=== PATIENT | female | born 1995 | race Caucasian/White ===

== ENCOUNTER → 2017-12-01 11:16 | Outpatient (CLI) | payer MEDICAID, SELFPAY ==
[2017-12-01 12:29] LABS: Urine Pregnancy, HCG Qual. Negative (Negative)
[2017-12-01 12:35] LABS: Basophils % 0.4 % (0.1-2.0); Eosinophils # 0.3 K/mm3 (0.0-0.4); Eosinophils % 4.9 % (0.1-12.0); Hematocrit 43.8 % (37.0-47.0); Lymphocytes # 2.8 K/mm3 (0.7-4.5); Lymphocytes % 44.2 K/mm3 (10-50); Mean Corpuscular HGB Conc 31.9 g/dL (31.8-35.4); Mean Corpuscular Volume 93.8 fl (81-99); Mean Platelet Volume 9.2 fl (7.4-10.4); Monocytes # 0.3 K/mm3 (0.1-1.0); Neutrophils # 2.9 K/mm3 (1.8-7.8); Neutrophils % 45.5 % (37.0-80.0); Platelet Count 282 K/mm3 (142-424); Red Blood Count 4.67 M/mm3 (4.20-5.40); Red Cell Distribution Width 12.2 % (11.5-17.5); White Blood Count 6.3 K/mm3 (4.8-10.8)
[2017-12-01 12:36] LABS: Amphetamine/Metha Screen,Urine Negative ng/mL (<1000); Barbiturates Screen,Urine Negative ng/mL (<200); Benzodiazepines Screen,Urine Negative ng/mL (200); Cannabinoid Screen,Urine Negative ng/mL (<50); Cocaine Screen,Urine Negative ng/g (<300); Methadone Screen,Urine Negative ng/mL (<300); Opiate Screen,Urine Negative ng/mL (<300); Phencyclidine Screen,Urine Negative ng/mL (<25)
[2017-12-01 13:20] LABS: Alanine Aminotransferase 16 U/L (12-78); Albumin Level 4.1 gm/dL (3.4-5.0); Albumin/Globulin Ratio 1.1 (1.1-1.8); Alkaline Phosphatase 60 U/L (46-116); Anion Gap 14.3 mEq/L (5-15); Aspartate Amino Transferase 15 U/L (15-37); Bilirubin,Total 0.5 mg/dL (0.2-1.0); Blood Urea Nitrogen 11 mg/dL (7-18); Carbon Dioxide 26 mmol/L (21.0-32.0); Chloride 108 mmol/L (98-107); Creatinine,Serum 0.62 mg/dL (0.55-1.02); Estimated Glomerular Filt Rate 120 ml/min (>60); GFR (African American) 146 ML/MIN (>60); Globulin 3.6 gm/dl (1.3-3.2); Glucose 78 mg/dL (74-106); Potassium 4.3 mmoL/L (3.5-5.1); Sodium 144 mmol/L (136-145); Thyroid Stimulating Hormone 1.67 uIU/ml (0.358-3.740); Total Protein,Serum 7.7 gm/dL (6.4-8.2)
== END ==
PROVIDERS: Visit Provider Nurse Practitioner Psychiatric/Mental Health
DX: F39 Unspecified mood [affective] disorder (principal)
CPT/HCPCS: 36415; 80053; 80305; 81025; 84443; 85025

== ENCOUNTER → 2018-01-15 10:41 | Outpatient (CLI) | payer MEDICAID, SELFPAY ==
--- NOTE | 2018-01-15 10:43 | US_ITS ---
US transvaginal Ordering Physician: Conor Farley MD Patient Age: 22 years: Female HISTORY: ITS.REASON: pelvic pain. HISTORY of cyst .nexplanon. With Breakthrough bleeding . TECHNIQUE: Transvaginal pelvic ultrasound COMPARISON :Prior transvaginal pelvic ultrasound from December 2012 ----FINDINGS -------- UTERUS. Normal size Retroverted retroflexed uterus. ... 7.8 cm length x 4.3 cm X 5.25 cm. . Moderate Endometrial stripe becomes more evident towards fundus = 7 mm AP maximum.. Individual stripe very thin at lower uterine segment.. Note LMP 01/08/2018 RIGHT OVARY: Nearly 4.5centimeter length x 2.7 cm x 2.62 cm. There are 2 cysts at the right ovary. The larger one is seen inferiorly measuring nearly 2.1 x 1.75 cm. The other partially collapsed cyst with some irregular contour superior to this measuring 1.75 x 1.1 cm . Only minimal trace fluid at cul-de-sac associated. The small pocket of fluid measuring 1.7 cm x 1 cm noted reflecting such LEFT OVARY: 2.5 x 1.55 x 1.25 cm. The cyst at the left ovary measuring 1.5 cm maximum length on my measurement x 0.9 cm. Moderate wall thickness. Other smaller follicles of both ovaries. IMPRESSION: --------- . Right ovary is enlarged & contains 2 cysts. The largest 2.1 cm & the another likely partially collapsed cyst measuring 1.75 cm. Only trace fluid at cul-de-sac associated Left ovary normal size with small cyst. 1.5 cm. Uterus normal size and is retroflexed/retroverted . Moderate endometrial stripe
== END ==
PROVIDERS: Family Provider Family Medicine; PCP Family Medicine; Visit Provider Obstetrics & Gynecology
DX: R10.2 Pelvic and perineal pain (principal)
CPT/HCPCS: 76830

== ENCOUNTER → 2018-02-08 15:00 | Outpatient (CLI) | payer MEDICAID, SELFPAY ==
[2018-02-08 15:03] LABS: Microscopic, Urine URINE MICROSCOPIC (MICROSCOPIC)
[2018-02-08 15:18] LABS: Basophils % 0.2 % (0.1-2.0); Eosinophils # 0.4 K/mm3 (0.0-0.4); Eosinophils % 4.5 % (0.1-12.0); Hematocrit 43.9 % (37.0-47.0); Hemoglobin 13.8 g/dL (12.2-16.2); Lymphocytes # 3.2 K/mm3 (0.7-4.5); Lymphocytes % 40.6 K/mm3 (10-50); Mean Corpuscular HGB Conc 31.3 g/dL (31.8-35.4); Mean Corpuscular Hemoglobin 28.6 pg (27.0-31.2); Mean Corpuscular Volume 91.3 fl (81-99); Mean Platelet Volume 9.1 fl (7.4-10.4); Monocytes # 0.4 K/mm3 (0.1-1.0); Neutrophils # 3.9 K/mm3 (1.8-7.8); Neutrophils % 49.7 % (37.0-80.0); Platelet Count 286 K/mm3 (142-424); Red Blood Count 4.81 M/mm3 (4.20-5.40); Red Cell Distribution Width 12.5 % (11.5-17.5); White Blood Count 7.8 K/mm3 (4.8-10.8)
[2018-02-08 15:22] LABS: Appearance,Urine CLEAR (Clear); Bilirubin,Urine Negative (Negative); Blood, Urine 2+ (Negative); Color,Urine YELLOW (Yellow); Glucose,Urine (UA) Negative (Negative); Ketones,Urine Negative (Negative); Leukocyte Esterase,Urine Negative (Negative); Nitrate,Urine Negative (Negative); PH,Urine 5.5 (5.0-8.5); Protein,Urine Negative (Negative); Specific Gravity, Urine >= 1.030 (1.005-1.030); Urobilinogen,Urine 0.2 EU/dl (0.2)
[2018-02-08 15:38] LABS: Bacteria,Urine 1+ /lpf
[2018-02-08 16:12] LABS: HCG Qualitative, Serum Negative (Negative)
[2018-02-08 16:22] LABS: Alanine Aminotransferase 19 U/L (12-78); Albumin Level 3.9 gm/dL (3.4-5.0); Albumin/Globulin Ratio 1.1 (1.1-1.8); Alkaline Phosphatase 66 U/L (46-116); Anion Gap 14.1 mEq/L (5-15); Aspartate Amino Transferase 13 U/L (15-37); Bilirubin,Total 0.4 mg/dL (0.2-1.0); Blood Urea Nitrogen 11 mg/dL (7-18); Calcium 9.1 mg/dL (8.5-10.1); Carbon Dioxide 26 mmol/L (21.0-32.0); Chloride 107 mmol/L (98-107); Creatinine,Serum 0.59 mg/dL (0.55-1.02); Estimated Glomerular Filt Rate 127 ml/min (>60); GFR (African American) 154 ML/MIN (>60); Globulin 3.6 gm/dl (1.3-3.2); Glucose 110 mg/dL (74-106); Potassium 4.1 mmoL/L (3.5-5.1); Sodium 143 mmol/L (136-145); Total Protein,Serum 7.5 gm/dL (6.4-8.2)
== END ==
PROVIDERS: Visit Provider Obstetrics & Gynecology
DX: Z01.818 Encounter for other preprocedural examination (principal); N94.9 Unspecified condition associated with female genital organs and menstrual cycle
CPT/HCPCS: 36415; 80053; 81001; 84703; 85025

== ENCOUNTER → 2020-01-20 07:22 | Outpatient (CLI) | payer MEDICAID, SELFPAY ==
[2020-01-20 09:20] LABS: Coronavirus 19 IgG Antibody Negative (Negative); Coronavirus 19 IgM Antibody Negative (Negative)
== END ==
PROVIDERS: Visit Provider Nurse Practitioner Obstetrics & Gynecology
DX: Z01.818 Encounter for other preprocedural examination (principal)
CPT/HCPCS: 36415; 86328

== ENCOUNTER 2020-01-23 06:07 | Day surgery (SDC) | payer MEDICAID, SELFPAY ==
--- NOTE | 2020-01-19 08:59 | SUR.PREOP ---
01/19/2020 @ 0900--PHONE CALL MADE TO PATIENT. PATIENT UNDERSTANDS THAT LAB WORK AND COVID TESTING NEEDS TO BE COMPLETED @ 0800 ON 01/20/2020. PATIENT UNDERSTANDS IF LAB WORK AND COVID-19 TESTS ARE NOT COMPLETED BY 12PM ON THAT DATE, THE SURGERY SCHEDULED WILL BE CANCELLED AND RESCHEDULED FOR ANOTHER TIME.
[2020-01-20 09:40] VITALS: BMI 29.9
[2020-01-23] VITALS (10 sets, daily range): BP systolic 97–116; BP diastolic 61–77; PULSE 57–78; RESP 16–20; TEMP 36.4–43; O2SAT 95–100
[2020-01-23 06:43] LABS: Basophils # 0.1 K/mm3 (0-0.2); Basophils % 1.3 % (0.1-2.0); Eosinophils # 0.4 K/mm3 (0.0-0.4); Eosinophils % 4.3 % (0.1-12.0); Hematocrit 43.8 % (37.0-47.0); Hemoglobin 14.7 g/dL (12.2-16.2); Lymphocytes # 4.5 K/mm3 (0.7-4.5); Lymphocytes % 43.8 % (10-50); Mean Corpuscular HGB Conc 33.6 g/dL (31.8-35.4); Mean Corpuscular Hemoglobin 30.5 pg (27.0-31.2); Mean Corpuscular Volume 90.9 fl (81-99); Mean Platelet Volume 8.8 fl (7.4-10.4); Monocytes # 0.5 K/mm3 (0.1-1.0); Monocytes % 4.3 % (1.7-9.3); Neutrophils # 4.8 K/mm3 (1.8-7.8); Neutrophils % 46.4 % (37.0-80.0); Platelet Count 301 K/mm3 (142-424); Red Blood Count 4.82 M/mm3 (4.20-5.40); Red Cell Distribution Width 12.8 % (11.5-17.5); White Blood Count 10.4 K/mm3 (4.8-10.8)
[2020-01-23 07:04] LABS: Chloride 106 mmol/L (98-107); Sodium 136 mmol/L (136-145)
[2020-01-23 07:05] LABS: Potassium 4.2 mmoL/L (3.5-5.1)
[2020-01-23 07:08] LABS: Anion Gap 9.2 mEq/L (5-15); Blood Urea Nitrogen 10 mg/dl (7-17); Calcium 8.8 mg/dl (8.4-10.2); Carbon Dioxide 25 mmol/L (22.0-30.0); Creatinine Clearance Estimated 140 mL/min (50-200); Estimated Glomerular Filt Rate 88 ml/min (>60); GFR (African American) 107 ML/MIN (>60); Glucose 98 mg/dl (74-100)
[2020-01-23 07:16] LABS: Urine Pregnancy, HCG Qual. Negative (Negative)
--- NOTE | 2020-01-23 07:51 | P.PN_ITS ---
[facility] Anesthesia Checklist - Patient Identification Patient Identification: Arm Band - Structural Data Admitted From: Home Planned Operative Procedure/s: laparoscopic bilateral salpingectomy Consent for Planned Operative Procedure(s) Verified: Yes Verified Documents: Surgical Consent, History and Physical - NPO Status Verified Time NPO: 00:00 - Additional verifications Anesthesia Reactions: Yes (HYPOTENSION) Hx Blood Transfusions: No Blood Transfusion Reaction: No - Airway Assessment C-Spine Mobility Assessed: Yes (mp2) TMJ Mobility Assessed: Yes Dentition: Good Dentition - Neurological Assessment Level of Consciousness: Awake, Alert - Anesthesia Plan Anesthesia Risk discussed: Yes Anesthesia Plan: Verified ASA Class: II Anesthesia Type: General [facility] History I have reviewed the patient's past medical history: Yes Medical History: Denies:: Cancer, Diabetes Mellitus Type 1, Diabetes Mellitus Type 2, Internal Pacemaker, MRSA, Seizures *Have you ever received a pneumonia vaccine?: No *Have you received a flu vaccine this season?: Yes Other Medical History: Denies: Blood Transfusion Reaction Anesthesia experience/problems:: nac Laterality Cases: Bilateral: Tonsillectomy Other Surgeries: Yes: Other. No: Pacemaker Amputation: No Fractures: No - *Social History Educational Level: Completed High School Smoking Status: Former smoker Tobacco Type: cigarettes # Packs/Day (cigarettes): 1 Alcohol Intake: never Alcohol Intake Frequency:: other Substance Use Type: denies use *Occupational Status:: unemployed Housing: house Household Members: spouse *Travel in the last 8 weeks: None Family Hx:: Cancer, Coronary Artery Disease, Diabetes, Heart Attack, Hyperlipidemia, Hypertension, Stroke, Mental illness
--- NOTE | 2020-01-23 08:04 | HMH.OPNOTE ---
Date of procedure: 01/23/20 Pre-op Diagnosis:: Desire for sterilization Post-op Diagnosis:: Desire for sterilization Procedure performed:: Laparoscopic bilateral salpingectomy Surgeon:: Mark Kennedy MD [employer] REPRESENTATIVE:: Abrahan Campos Anesthesia: GETA Estimated blood loss (mL): 25 Clinical Note:: She is a 24-year-old 2 para 2 who expressed desire for sterilization. The risks and benefits as well as the irreversibility of bilateral salpingectomy were discussed with the patient prior to surgery. Operative findings:: She had a normal-appearing anteverted uterus. The tubes appeared normal. The ovaries appeared normal. The upper abdomen and rest of the pelvis appeared normal. Operative note:: She was taken to the operating room where general anesthesia was found be adequate. She was prepped and draped in normal sterile fashion in the semilithotomy position. A weighted speculum was placed in the vagina and the anterior lip of the cervix was grasped with a tenaculum. I then inserted a Amanda uterine manipulator into the cervical os. The balloon was then insufflated. I changed gloves and injected 10 cc of 0.5% ropivacaine around her umbilicus and made a small incision within the umbilicus. I inserted a Veress needle into the abdominal cavity. The peritoneal cavity was then insufflated with carbon dioxide gas to a pressure of 20 mmHg. I then inserted a 5 millimeter trocar under direct vision. I injected through and through the pubic hairline, made a small incision here and inserted an 8 mm trocar under direct vision. I identified the inferior epigastric artery on the left side, went lateral to these and injected through and through. I then placed a 5 mm trocar here under direct vision. The pelvis and upper abdomen were then inspected and the findings were as previously dictated. I grasped the right tube at the cornua and using harmonic scalpel on coagulation mode I cut through the tube. I then grasped the distal tube and using harmonic scalpel cut along the mesosalpinx. The tube was removed through 8 mm trocar site. This was similarly performed on the patient's left side. I then injected 30 cc of 0.5% ropivacaine into the pelvis. After assuring hemostasis the gas was let out of the abdomen and hemostasis was once again assured. The abdomen was then reinsufflated. The secondary trochars were removed under direct vision. The gas was let out her abdomen. The primary trocar was then removed. The 8 mm trocar site was closed deeply with 2-0 Vicryl suture followed by subcuticular 4-0 Monocryl suture. The 5 mm trocar sites were closed with subcuticular 4-0 Monocryl. Sterile dressings were applied. The patient tolerated the procedure well and was taken to the recovery room in excellent condition. All sponge instrument and needle counts were correct. The estimated blood loss was less than 25 cc. Condition: stable Disposition: PACU Specimens:: Bilateral fallopian tubes Complications:: None
--- NOTE | 2020-01-23 08:11 | P.PN_ITS ---
[facility] Anesthesia Record Part I Intake, IV Amount: 810 Estimated blood loss (mL): 25 Urine output (mL): 25 Blood Pressure: 113/77 SaO2: 95 Pulse Rate: 57 Respiratory Rate: 16 Temperature: 98 F Patient is:: Drowsy, Stable Stable to PACU at:: 08:10
--- NOTE | 2020-01-23 09:21 | PC.NURSE ---
0828-pt sitting up in bed eating ice chips and drinking water without difficulty 0836-detailed report called to STACI Still 0840-pt transported to post op via stretcher with timo rails up and left in care of STACI Still with bed locked in lowest position, vss, pt stable
--- NOTE | 2020-01-23 14:01 | HMH.ANESII ---
[facility] Anesthesia Record Part II Discharge Time: 08:50 Destination: Surgical Day Care (OP Surgery) PACU nurse assessment reviewed?: Yes Patient Condition:: Good Anesthesia Complications:: None Swallowing reflex intact?: No Cyanosis?: No Blood Pressure: 97/73 Pulse Rate: 65 Temperature: 97.5 F Mental Status: Alert & Oriented Pain level:: 0 Nausea and/or vomitting:: None Intake, IV Amount: 0
== END 2020-01-23 09:15 | disposition home or self-care (01) ==
LOC: OR 06:10
PROVIDERS: PCP Family Medicine; Visit Provider Nurse Practitioner Obstetrics & Gynecology
PROC: (CPT 58661; principal; 2020-01-23 07:30)
DX: Z30.2 Encounter for sterilization (principal); Z87.891 Personal history of nicotine dependence; Z80.9 Family history of malignant neoplasm, unspecified; Z83.3 Family history of diabetes mellitus; Z82.49 Family history of ischemic heart disease and other diseases of the circulatory system; Z83.438 Family history of other disorder of lipoprotein metabolism and other lipidemia; Z82.3 Family history of stroke
CPT/HCPCS: 58661; 80048; 81025; 85025; 96374; J2405; J2710

== ENCOUNTER 2023-08-02 18:26 | Observation (INO) | payer MEDICAID, SELFPAY ==
[2023-08-02] VITALS (7 sets, daily range): BP systolic 94–117; BP diastolic 53–82; PULSE 63–81; RESP 10–20; TEMP 36.7–37; O2SAT 97–100; BMI 26.5; BMI 29.8
--- NOTE | 2023-08-02 18:34 | CT_ITS ---
PROCEDURE INFORMATION: Exam: CT Abdomen And Pelvis With Contrast Exam date and time: 08/02/2023 7:11 PM Age: 27 years old Clinical indication: Abdominal pain; Additional info: Rlq abd pain TECHNIQUE: Imaging protocol: Computed tomography of the abdomen and pelvis with contrast. Radiation optimization: All CT scans at this facility use at least one of these dose optimization techniques: automated exposure control; mA and/or kV adjustment per patient size (includes targeted exams where dose is matched to clinical indication); or iterative reconstruction. Contrast material: ISOVUE; Contrast volume: 75 ml; Contrast route: IV; REPORTING DATA: Count of CT and Cardiac NM exams in prior 12 months: This patient has received 0 known CTs and 0 known cardiac nuclear medicine studies in the 12 months prior to the current study. COMPARISON: TRANVAG US transvaginal 01/15/2018 11:03 AM FINDINGS: Liver: Normal. No mass. Gallbladder and bile ducts: Normal. No calcified stones. No ductal dilation. Pancreas: Normal. No ductal dilation. Spleen: Normal. No splenomegaly. Adrenal glands: Normal. No mass. Kidneys and ureters: Normal. No hydronephrosis. Stomach and bowel: Unremarkable. No obstruction. No mucosal thickening. Appendix: Dilated appendix measuring up to 1 cm in caliber with wall thickening and mild periappendiceal inflammatory fat stranding. Intraperitoneal space: Unremarkable. No free air. No significant fluid collection. Vasculature: Unremarkable. No abdominal aortic aneurysm. Lymph nodes: Unremarkable. No enlarged lymph nodes. Urinary bladder: Unremarkable as visualized. Reproductive: Right corpus luteal cyst Bones/joints: Unremarkable. No acute fracture. Soft tissues: Unremarkable. IMPRESSION: Mild acute uncomplicated appendicitis.
--- NOTE | 2023-08-02 18:35 | HMH.EDGENADL ---
Discharge Plan Disposition Patient Disposition: Admitted Chief Complaint: Abdominal Pain Clinical Impressions Clinical Impression: Abdominal pain, RLQ Acute appendicitis Qualifiers: Appendicitis gangrene presence: without gangrene Appendicitis perforation presence: without perforation Appendicitis abscess presence: without abscess Discharge ED Provider: Tolu Lewis General Adult HPI General Chief complaint: Abdominal Pain Stated complaint: pain in rt side and stomach Time Seen by Provider: 08/02/23 18:31 History of Present Illness HPI narrative: 27-year-old female, previously healthy, history of bilateral tubal ligation and prior left ovarian cystectomy presents with right lower quadrant pain since yesterday. Reports mild nausea but no vomiting. Has continued to eat, last p.o. intake at 6 PM. Reports no fever. Related Data Home Medications Medication Instructions Recorded Confirmed No Known Home Medications 08/02/23 08/02/23 Allergies Allergy/AdvReac Type Severity Reaction Status Date / Time No Known Allergies Allergy Verified 02/07/20 10:55 [facility] Disclaimer: The information contained in this section may have been updated after the patient was seen, as this information can be updated by other users. Social History Smoking Status: Current every day smoker tobacco type: cigarettes packs per day: 1 second hand exposure: Yes alcohol intake: never substance use type: denies use current occupational status: unemployed Travel in the last 8 weeks: None household members: spouse housing: house current occupation: [employer] current occupational exposures/hazards: No caffeine: Yes ROS Obtained: Yes All systems reviewed & no additional complaints except as documented Physical Exam General General appearance: alert and in no apparent distress Head Head exam: atraumatic and normocephalic Eye Eye exam: Present normal appearance, PERRL and EOMI ENT ENT exam: Present normal oropharynx and normal external ear exam Neck Neck exam: Present normal inspection and full ROM Chest Chest inspection: Present normal inspection and symmetric chest wall rise; Absent tenderness Respiratory Respiratory exam: Present normal lung sounds bilaterally; Absent respiratory distress Cardiovascular Cardiovascular exam: Present regular rate and normal rhythm Abdominal Exam Abdominal exam: Present soft and tenderness (Focal, right lower quadrant, without peritonitis); Absent distention or guarding Extremities Exam Extremities exam: Present normal inspection; Absent edema or joint swelling Back Exam Back exam: Present normal inspection; Absent tenderness Neurological Exam Neurological exam: Present alert and oriented X3; Absent motor sensory deficit Psychiatric Psychiatric exam: Present normal affect and normal mood Skin Skin exam: Present warm, dry and normal color Lymphatic Lymphatic Findings: no adenopathy Medical Decision Making Medical Records Medical records reviewed: Yes I reviewed the patient's medical records. [place] Inquiry Pt receiving controlled substance: No [place] was queried for this patient: No Vital Signs: 08/02/23 18:36 08/02/23 19:00 08/02/23 19:30 Temperature 98.1 F Temperature Source Oral Pulse Rate 75 75 Pulse Rate [Left Radial] 81 Respiratory Rate 20 20 Blood Pressure 117/77 111/77 Blood Pressure [Right Arm] 114/64 Blood Pressure Mean [Right Arm] 80 02 Sat by Pulse Oximetry 97 100 100 Oxygen Delivery Method Room Air Room Air 08/02/23 20:00 08/02/23 20:31 Temperature Temperature Source Pulse Rate 73 66 Pulse Rate [Left Radial] Respiratory Rate 10 L 14 Blood Pressure 112/82 94/53 L Blood Pressure [Right Arm] Blood Pressure Mean [Right Arm] 02 Sat by Pulse Oximetry 100 100 Oxygen Delivery Method Room Air Room Air Lab Data Lab results reviewed: Yes I reviewed the patient's lab results. Lab Results 08/02/23 18:32: Uri
[2023-08-02 18:40] LABS: Appearance,Urine CLEAR (Clear); Bilirubin,Urine Negative (Negative); Blood, Urine Negative (Negative); Color,Urine YELLOW (Yellow); Glucose,Urine (UA) Negative (Negative); Ketones,Urine TRACE (Negative); Leukocyte Esterase,Urine TRACE (Negative); Microscopic, Urine URINE MICROSCOPIC (MICROSCOPIC); Nitrate,Urine Negative (Negative); Protein,Urine Negative (Negative); Urobilinogen,Urine 0.2 EU/dl (0.2)
[2023-08-02 18:49] LABS: Chloride 103 mmol/L (98-107)
[2023-08-02 18:50] LABS: Potassium 3.1 mmoL/L (3.5-5.1); Sodium 139 mmol/L (136-145)
[2023-08-02 18:52] LABS: Alanine Aminotransferase 24 U/L (12-78); Alkaline Phosphatase 63 U/L (38-126); Aspartate Amino Transferase 30 U/L (14-36); Bilirubin,Total 0.5 mg/dl (0.2-1.3); Blood Urea Nitrogen 10 mg/dl (7-17); Creatinine Clearance Estimated 151 mL/min (50-200); Estimated Glomerular Filt Rate 120 ml/min (>60); GFR (African American) 145 ML/MIN (>60)
[2023-08-02 18:53] LABS: Albumin Level 4.8 g/dl (3.5-5.0); Albumin/Globulin Ratio 1.2 (1.1-1.8); Anion Gap 12.1 mEq/L (5-15); Calcium 8.8 mg/dl (8.4-10.2); Carbon Dioxide 27 mmol/L (22.0-30.0); Globulin 3.9 g/dL (1.3-3.2); Glucose 99 mg/dl (74-100); Total Protein,Serum 8.7 g/dl (6.3-8.2)
[2023-08-02 18:54] LABS: Basophils % 0.4 % (0.1-2.0); Eosinophils # 0.3 K/mm3 (0.0-0.4); Eosinophils % 3.1 % (0.1-12.0); Hematocrit 37.5 % (37.0-47.0); Hemoglobin 12.2 g/dL (12.2-16.2); Lymphocytes # 3.2 K/mm3 (0.7-4.5); Lymphocytes % 33.2 % (10-50); Mean Corpuscular HGB Conc 32.5 g/dL (31.8-35.4); Mean Corpuscular Hemoglobin 27.5 pg (27.0-31.2); Mean Corpuscular Volume 84.7 fl (81-99); Mean Platelet Volume 9.3 fl (7.4-10.4); Monocytes # 0.7 K/mm3 (0.1-1.0); Monocytes % 6.7 % (1.7-9.3); Neutrophils # 5.5 K/mm3 (1.8-7.8); Neutrophils % 56.5 % (37.0-80.0); Platelet Count 344 K/mm3 (142-424); Red Blood Count 4.43 M/mm3 (4.20-5.40); Red Cell Distribution Width 14.3 % (11.5-17.5); White Blood Count 9.6 K/mm3 (4.8-10.8)
[2023-08-02 18:55] LABS: HCG Qualitative, Serum Negative (Negative)
[2023-08-02 18:59] LABS: Squamous Epithelial Cell,Urine Occasional #/hpf (0-5); WBC,Urine Occasional #/hpf (0-3)
[2023-08-02 19:38] LABS: Lactic Acid 1.5 mmol/L (0.7-2.1)
--- NOTE | 2023-08-02 19:49 | PC.NURSE ---
PC from [facility] spoke to ED doctor
--- NOTE | 2023-08-02 19:56 | PC.NURSE ---
Dr. Fairchild paged, on phone with ED doctor at this time
--- NOTE | 2023-08-02 20:43 | EXP.HP ---
History of Present Illness *Admission Date: 08/02/23 *Reason for visit:: Abdominal pain *History of present illness: This is a very pleasant 27-year-old female with no significant past medical history for tubal ligation, who presents emergency department today with complaints of 2 days of abdominal pain. She reports abdominal pain that began yesterday and was intermittent in nature. She reports pain was located in her right lower quadrant. She states that she was able to rest overnight but developed worsening abdominal pain today after eating. She denies any fever, diarrhea, vomiting. Emergency department workup notable for uncomplicated acute appendicitis T. Laboratory evaluation unremarkable except for mild hypokalemia with potassium 3.2. Dr. Fairchild with surgery was consulted and will see patient in a.m. for surgery. Patient ate 1 hour prior to arrival here. She will be made n.p.o. for surgery in a.m. She is admitted to the hospital service for further evaluation management. [facility] Disclaimer: The information contained in this section may have been updated after the patient was seen, as this information can be updated by other users. Social History Smoking Status: Current every day smoker tobacco type: cigarettes packs per day: 1 second hand exposure: Yes alcohol intake: never substance use type: denies use current occupational status: unemployed Travel in the last 8 weeks: None household members: spouse housing: house current occupation: [employer] current occupational exposures/hazards: No caffeine: Yes Review of Systems Constitutional Constitutional: Reports system reviewed and no additional complaints, except as documented Eyes Eyes: Reports system reviewed and no additional complaints, except as documented ENT Ears, Nose, Mouth, and Throat: Reports system reviewed and no additional complaints, except as documented *Cardiovascular Cardiovascular: Reports system reviewed and no additional complaints, except as documented *Respiratory Respiratory: Reports system reviewed and no additional complaints, except as documented *Gastrointestinal Gastrointestinal: Reports system reviewed and no additional complaints, except as documented *Genitourinary Genitourinary: Reports system reviewed and no additional complaints, except as documented *Musculoskeletal Musculoskeletal: Reports system reviewed and no additional complaints, except as documented Integumentary/Breasts Skin/Breast: Reports system reviewed and no additional complaints, except as documented *Neurologic Neurologic: Reports system reviewed and no additional complaints, except as documented Psychiatric Psychiatric: Reports system reviewed and no additional complaints, except as documented Endocrine Endocrine: Reports system reviewed and no additional complaints, except as documented Meds Home Medications and Allergies Home Medications Medication Instructions Recorded Confirmed Type No Known Home Medications 08/02/23 08/02/23 History New Prescriptions to Start Prescriptions: Allergies Allergy/AdvReac Type Severity Reaction Status Date / Time No Known Allergies Allergy Verified 02/07/20 10:55 Exam Data for Last 24 hours Vital signs and Labs for Last 24 Hours: Temp Pulse Resp BP Pulse Ox O2 Del Method 98.1 F 75 20 111/77 100 Room Air 08/02/23 18:36 08/02/23 19:30 08/02/23 19:30 08/02/23 19:30 08/02/23 19:30 08/02/23 19:30 Laboratory Results - last 24 hr 08/02/23 18:32: Urine Color Yellow, Urine Appearance Clear, Urine pH 6.0, Ur Specific [place] 1.010, Urine Protein Negative, Urine Glucose (UA) Negative, Urine Ketones Trace, Urine Blood Negative, Urine Nitrate Negative, Urine Bilirubin Negative, Urine Urobilinogen 0.2, Ur Leukocyte Esterase Trace, Urine RBC None, Urine WBC Occasional, Ur Squamous Epith Cells Occasional, Urine Bacteria None 08/02/23 18:39: WBC 9.6, RBC 4.43, Hgb 12.2, Hct 37.5, MCV 84.7, M
--- NOTE | 2023-08-02 21:02 | PC.NURSE ---
report called to STACI Anderson
--- NOTE | 2023-08-02 21:03 | PC.NURSE ---
Patient updated on status
--- NOTE | 2023-08-02 21:16 | PC.NURSE ---
pt arrived to floor via wheelchair @21:15
[2023-08-03] VITALS (22 sets, daily range): BP systolic 97–120; BP diastolic 47–92; PULSE 67–100; RESP 12–19; TEMP 36.2–36.9; O2SAT 94–100; BMI 29.8
--- NOTE | 2023-08-03 05:46 | EXP.SURG.CON ---
History of Present Illness *Admission Date: 08/02/23 *Reason for visit:: Abdominal pain *History of present illness: Patient is a 27-year-old otherwise healthy female from [facility] who presented to the emergency department in the early evening of 08/02/2023 with abdominal pain over about 24 hours. It was intermittent in nature. It became localized to the right lower quadrant. She had reportedly been unable to rest over the evening before. On 08/02/2023 she had worsening abdominal pain after eating. Evaluation in the emergency department revealed normal white blood cell count. She had a CT scan which was consistent with mild acute uncomplicated appendicitis. With a dilated appendix measuring up to 1 cm with wall thickening and mild periappendiceal inflammatory fat stranding. Patient had eaten pancakes immediately prior to presentation to the emergency department. [facility] Disclaimer: The information contained in this section may have been updated after the patient was seen, as this information can be updated by other users. Surgical History H/O removal of cyst Hx of tonsillectomy Hx of tubal ligation Social History (Updated 08/02/23 @ 22:22 by Wandy Abernathy RN) Smoking Status: Heavy tobacco smoker tobacco type: cigarettes packs per day: 1 second hand exposure: Yes alcohol intake: never substance use type: denies use current occupational status: unemployed Travel in the last 8 weeks: None household members: spouse housing: house lives independently: No marital status: number of children: 2 current occupation: [employer] current occupational exposures/hazards: No caffeine: Yes Review of Systems Review of Systems Review of systems:: pertinent systems reviewed and negative unless documented below *Neurologic Neurologic: Reports system reviewed and no additional complaints, except as documented Meds Home Medications and Allergies Home Medications Medication Instructions Recorded Confirmed Type No Known Home Medications 08/02/23 08/02/23 History New Prescriptions to Start Prescriptions: Allergies Allergy/AdvReac Type Severity Reaction Status Date / Time No Known Allergies Allergy Verified 02/07/20 10:55 Exam (Inpt) Vital signs and Labs for Last 24 Hours: Temp Pulse Resp BP Pulse Ox O2 Del Method 98.1 F 81 16 98/47 L 98 Room Air 08/03/23 04:00 08/03/23 04:00 08/03/23 04:00 08/03/23 04:00 08/03/23 04:00 08/03/23 05:00 Laboratory Results - last 24 hr 08/02/23 18:32: Urine Color Yellow, Urine Appearance Clear, Urine pH 6.0, Ur Specific [place] 1.010, Urine Protein Negative, Urine Glucose (UA) Negative, Urine Ketones Trace, Urine Blood Negative, Urine Nitrate Negative, Urine Bilirubin Negative, Urine Urobilinogen 0.2, Ur Leukocyte Esterase Trace, Urine RBC None, Urine WBC Occasional, Ur Squamous Epith Cells Occasional, Urine Bacteria None 08/02/23 18:39: WBC 9.6, RBC 4.43, Hgb 12.2, Hct 37.5, MCV 84.7, MCH 27.5, MCHC 32.5, RDW 14.3, Plt Count 344, MPV 9.3, Neut % (Auto) 56.5, Lymph % (Auto) 33.2, [place] % (Auto) 6.7, Eos % (Auto) 3.1, Baso % (Auto) 0.4, Neut # (Auto) 5.5, Lymph # (Auto) 3.2, [place] # (Auto) 0.7, Eos # (Auto) 0.3, Baso # (Auto) 0.0, Sodium 139, Potassium 3.1 L, Chloride 103, Carbon Dioxide 27, Anion Gap 12.1, BUN 10, Creatinine 0.60, Estimated Creat Clear 151, Estimated GFR 120, Est GFR ( Amer) 145, Glucose 99, Calcium 8.8, Total Bilirubin 0.5, AST 30, ALT 24, Alkaline Phosphatase 63, Total Protein 8.7 H, Albumin 4.8, Globulin 3.9 H, Albumin/Globulin Ratio 1.2, Serum HCG, Qual Negative 08/02/23 18:47: Lactate 1.5 I & O for Labs for Last 24 Hours: Intake & Output 07/31/23 08/01/23 08/02/23 08/03/23 11:59 11:59 11:59 11:59 Output Total 0 / 0 Balance 0 / 0 Weight 168 lb 4.8 oz Constitutional: no acute distress Head: Present normocephalic Respirator
[2023-08-03 06:18] LABS: Basophils % 0.4 % (0.1-2.0); Eosinophils # 0.3 K/mm3 (0.0-0.4); Eosinophils % 5.8 % (0.1-12.0); Hematocrit 31.6 % (37.0-47.0); Lymphocytes # 1.7 K/mm3 (0.7-4.5); Lymphocytes % 33.8 % (10-50); Mean Corpuscular HGB Conc 33.1 g/dL (31.8-35.4); Mean Corpuscular Volume 84.6 fl (81-99); Mean Platelet Volume 10.1 fl (7.4-10.4); Monocytes # 0.5 K/mm3 (0.1-1.0); Neutrophils # 2.6 K/mm3 (1.8-7.8); Platelet Count 260 K/mm3 (142-424); Red Blood Count 3.73 M/mm3 (4.20-5.40); Red Cell Distribution Width 14.6 % (11.5-17.5); White Blood Count 5.1 K/mm3 (4.8-10.8)
[2023-08-03 06:21] LABS: Chloride 109 mmol/L (98-107); Potassium 3.8 mmoL/L (3.5-5.1); Sodium 138 mmol/L (136-145)
[2023-08-03 06:23] LABS: Hemoglobin 10.4 g/dL (12.2-16.2)
[2023-08-03 06:24] LABS: Anion Gap 7.8 mEq/L (5-15); Blood Urea Nitrogen 9 mg/dl (7-17); Carbon Dioxide 25 mmol/L (22.0-30.0); Creatinine Clearance Estimated 145 mL/min (50-200); Estimated Glomerular Filt Rate 100 ml/min (>60); GFR (African American) 121 ML/MIN (>60)
[2023-08-03 06:25] LABS: Calcium 7.9 mg/dl (8.4-10.2); Glucose 94 mg/dl (74-100)
--- NOTE | 2023-08-03 09:07 | PC.NURSE ---
Patient going off the floor at this time to surgery.
--- NOTE | 2023-08-03 10:05 | EXP.ANES.CKL ---
[facility] Disclaimer: The information contained in this section may have been updated after the patient was seen, as this information can be updated by other users. Surgical History H/O removal of cyst Hx of tonsillectomy Hx of tubal ligation Social History (Updated 08/02/23 @ 22:22 by Wnady Abernathy RN) Smoking Status: Heavy tobacco smoker tobacco type: cigarettes packs per day: 1 second hand exposure: Yes alcohol intake: never substance use type: denies use current occupational status: unemployed Travel in the last 8 weeks: None household members: spouse housing: house lives independently: No marital status: number of children: 2 current occupation: [employer] current occupational exposures/hazards: No caffeine: Yes [facility] Anesthesia Checklist Patient Identification Patient Identification: Verbal (Name & ) Structural Data Admitted From: Inpatient Planned Operative Procedure/s: lap appy Consent for Planned Operative Procedure(s) Verified: Yes NPO Status Verified Time NPO: 00:00 Additional verifications Anesthesia Reactions: Yes (HYPOTENSION) Hx Blood Transfusions: No Blood Transfusion Reaction: No Airway Assessment Mallampati Score:: Class I C-Spine Mobility Assessed: Yes TMJ Mobility Assessed: Yes Dentition: Good Dentition Neurological Assessment Level of Consciousness: Awake, Alert and Appropriate Anesthesia Plan Anesthesia Risk discussed: Yes Anesthesia Plan: Verified ASA Class: II Anesthesia Type: General
--- NOTE | 2023-08-03 10:40 | EXP.OP.NOTE ---
Date of procedure: 08/03/23 Pre-op Diagnosis:: Acute appendicitis Post-op Diagnosis:: Same Procedure performed:: Laparoscopic appendectomy Surgeon:: Adarsh Fairchild MD TRAIN CONTROL TECHNICIAN:: Jesus Valdovinos Anesthesia: GETA Estimated blood loss (mL): 15 Operative findings:: She had an acutely inflamed edematous mildly indurated not suppurative nonnecrotic appendicitis Operative note:: Consent was obtained and patient was taken the operating room. She was given preoperative intravenous antibiotics. In the operating room she is placed in a supine position. General anesthesia was induced via endotracheal tube. Sam catheter was placed. Abdomen was prepped and draped in the standard surgical fashion. Subumbilical skin incision was made and while performing abdominal wall lift Veress needle was inserted. CO2 pneumoperitoneum was achieved to 15 mmHg. 12 mm optical trocar was inserted at the umbilicus. Intraperitoneal contents were visualized. She was small amount of reactive fluid in the pelvis. 5 mm trocar was inserted in the suprapubic location in previous laparoscopy scar. Fluid was suctioned free. 5 mm trocar was inserted in the right upper abdomen. 10 mm laparoscope was placed with a 5 mm angled laparoscope and inserted through the right upper trocar site. Patient was positioned in Trendelenburg left side down. Cecum was retracted medially. Appendix was identified lateral to the cecum. It was erythematous and edematous with mild induration. Appendix was grasped with an endoscopic [place]. Mesoappendix was carefully divided with RADHA ultrasonic harmonic man with care taken to coagulate the appendiceal artery in the process. Dissection was carried down to the appendiceal base. Appendix was divided at its base with an endoscopic ANDRES linear cutting stapling device. Appendix was placed within an Endo Catch retrieval device and removed from the peritoneal cavity via the umbilical trocar site which required some minor extension of the fascial incision for delivery. Appendiceal staple line was inspected for hemostasis and integrity which was assured. Limited irrigation was performed. Trocars were then removed as CO2 pneumoperitoneum was evacuated. Fascia at the umbilicus was closed with a couple of 0 Vicryl sutures. Local anesthetic was infiltrated in all incisions. Skin incisions were closed with 4-0 Monocryl in subcuticular fashion. Dermabond and clean dry sterile dressing was applied. Condition: stable Disposition: PACU Complications:: None immediately apparent
--- NOTE | 2023-08-03 10:49 | EXP.ANES.I ---
[facility] Anesthesia Record Part I Anesthesia Record I Intake, IV Amount: 1,500 Hydration: Adequate Estimated blood loss (mL): 0 Urine output (mL): 200 Blood Pressure: 111/72 SaO2: 97 Pulse Rate: 99 Airway Patency: Patent Respiratory Rate: 12 Temperature: 97.2 F Patient is:: Awake and Stable Stable to PACU at:: 10:45
--- NOTE | 2023-08-03 11:18 | PC.NURSE ---
pt back from surgery at this time.3 dressings to abdomen, c/d/i.
--- NOTE | 2023-08-03 18:00 | EXP.DC.SUM ---
General Admission date:: 08/02/23 Discharge date: 08/03/23 HPI HPI HPI: Patient is a 27-year-old otherwise healthy female from [facility] who presented to the emergency department in the early evening of 08/02/2023 with abdominal pain over about 24 hours. It was intermittent in nature. It became localized to the right lower quadrant. She had reportedly been unable to rest over the evening before. On 08/02/2023 she had worsening abdominal pain after eating. Evaluation in the emergency department revealed normal white blood cell count. She had a CT scan which was consistent with mild acute uncomplicated appendicitis. With a dilated appendix measuring up to 1 cm with wall thickening and mild periappendiceal inflammatory fat stranding. Patient had eaten pancakes immediately prior to presentation to the emergency department. Hospital Course Hospital Course Hospital Course: Patient was seen and evaluated at the bedside on the day of discharge. Patient is stable for discharge. Patient wishes to be discharged. All patient questions were answered and patient was given time to ask questions. Patient was discharged in stable condition. Patient understands that she can return to ER in case of any sudden changes in health. Total time spent on DC - 38 mins Acute appendicitis s/p appendectomy tolerated well now eating and tolerating diet GS ok with DC patient also wishes to be DC started on P amox- clav at dc patient informed of following up with appointments and verbalized understanding Exam Data for Last 24 hours Vital signs and Labs for Last 24 Hours: Temp Pulse Resp BP Pulse Ox O2 Del Method 98.5 F 89 18 100/66 L 99 Room Air 08/03/23 16:00 08/03/23 16:10 08/03/23 16:10 08/03/23 16:10 08/03/23 16:10 08/03/23 16:52 Laboratory Results - last 24 hr 08/02/23 18:32: Urine Color Yellow, Urine Appearance Clear, Urine pH 6.0, Ur Specific [place] 1.010, Urine Protein Negative, Urine Glucose (UA) Negative, Urine Ketones Trace, Urine Blood Negative, Urine Nitrate Negative, Urine Bilirubin Negative, Urine Urobilinogen 0.2, Ur Leukocyte Esterase Trace, Urine RBC None, Urine WBC Occasional, Ur Squamous Epith Cells Occasional, Urine Bacteria None 08/02/23 18:39: WBC 9.6, RBC 4.43, Hgb 12.2, Hct 37.5, MCV 84.7, MCH 27.5, MCHC 32.5, RDW 14.3, Plt Count 344, MPV 9.3, Neut % (Auto) 56.5, Lymph % (Auto) 33.2, [place] % (Auto) 6.7, Eos % (Auto) 3.1, Baso % (Auto) 0.4, Neut # (Auto) 5.5, Lymph # (Auto) 3.2, [place] # (Auto) 0.7, Eos # (Auto) 0.3, Baso # (Auto) 0.0, Sodium 139, Potassium 3.1 L, Chloride 103, Carbon Dioxide 27, Anion Gap 12.1, BUN 10, Creatinine 0.60, Estimated Creat Clear 151, Estimated GFR 120, Est GFR ( Amer) 145, Glucose 99, Calcium 8.8, Total Bilirubin 0.5, AST 30, ALT 24, Alkaline Phosphatase 63, Total Protein 8.7 H, Albumin 4.8, Globulin 3.9 H, Albumin/Globulin Ratio 1.2, Serum HCG, Qual Negative 08/02/23 18:47: Lactate 1.5 08/03/23 06:04: WBC 5.1 D, RBC 3.73 L, Hgb 10.4 L D, Hct 31.6 L, MCV 84.6, MCH 28.0, MCHC 33.1, RDW 14.6, Plt Count 260, MPV 10.1, Neut % (Auto) 51.0, Lymph % (Auto) 33.8, [place] % (Auto) 9.0, Eos % (Auto) 5.8, Baso % (Auto) 0.4, Neut # (Auto) 2.6, Lymph # (Auto) 1.7, [place] # (Auto) 0.5, Eos # (Auto) 0.3, Baso # (Auto) 0.0, Sodium 138, Potassium 3.8 D, Chloride 109 H, Carbon Dioxide 25, Anion Gap 7.8, BUN 9, Creatinine 0.70, Estimated Creat Clear 145, Estimated GFR 100, Est GFR ( Amer) 121, Glucose 94, Calcium 7.9 L I & O for Last 24 hours: Intake & Output 07/31/23 08/01/23 08/02/23 08/03/23 23:59 23:59 23:59 23:59 Intake Total 1800 / 1800 Output Total 0 / 0 0 / 0 Balance 0 / 0 1800 / 1800 Weight 76.34 kg 76.34 kg Constitutional Constitutional: no acute distress *Routine HEENT Exam Head: Present normocephalic Eye: Present EOMI and PERRL ENT: Present mucous membranes moist *Routine Neck Exam Neck: Present supple; Absent lymphadenopathy *Routine Respiratory Exam Respir
--- NOTE | 2023-08-04 08:36 | EXP.ANES.II ---
[facility] Anesthesia Record Part II Anesthesia Record Part II Discharge Time: 11:15 [facility] nurse assessment reviewed?: Yes Patient Condition:: Good Anesthesia Complications:: None Swallowing reflex intact?: Yes Airway Patency: Patent Cyanosis?: No Blood Pressure: 106/67 SaO2: 100 Respiratory Rate: 18 Pulse Rate: 71 Temperature: 97.8 F Mental Status: Alert & Oriented Pain level:: 0 Nausea and/or vomitting:: None Intake, IV Amount: 1,200 Hydration: Adequate
[2023-08-04 08:37] VITALS: BP 106/67; PULSE 71; RESP 18; TEMP 36.6; O2SAT 100
--- NOTE | 2023-08-04 14:22 | CARE MANAGER ---
Called and spoke with patient in regards to her recent discharge. Patient states that she is doing well. She has started new medication and is aware of scheduled f/u appt.
== END 2023-08-03 18:17 | disposition home or self-care (01) ==
LOC: ER 19:02 → 2ND 21:05
PROVIDERS: Nurse Practitioner Acute Care; Surgery; Admitting Provider Internal Medicine; Emergency Provider Emergency Medicine; PCP Family Medicine; Visit Provider Internal Medicine
PROC: 0DTJ4ZZ Resection of Appendix, Percutaneous Endoscopic Approach (ICD-10-PCS; CPT 44970; principal; 2023-08-03 13:30)
DX: K35.80 Unspecified acute appendicitis (principal); E87.6 Hypokalemia; F17.210 Nicotine dependence, cigarettes, uncomplicated
CPT/HCPCS: 44970; 74177; 80048; 80053; 81001; 83605; 84703; 85025; 87086; 88304; 99285; G0378; J0690; J2405; Q9967